=== PATIENT | male | born 1965 | race Caucasian/White ===

== ENCOUNTER 2019-12-01 17:54 | Emergency (ER) | payer MEDICAID, SELFPAY ==
[2019-12-01 17:54] VITALS: BP 140/91; PULSE 52; RESP 18; TEMP 36.9; O2SAT 100; BMI 22.9
--- NOTE | 2019-12-01 18:12 | CT_ITS ---
PROCEDURE: CT ANGIO CHEST CLINCIAL INDICATION: PE protocol CHEST PAIN ON DEEP INSPIRATION. R/O PE. HISTORY OF ASBESTOS EXPOSURE. COMPARISON: No exams were available for comparison TECHNIQUE: IV Contrast: 70ML OPTIRAY 350 Axial images obtained with sagittal and coronal reformats. All CT scans at the facility use one or more dose reduction, viz: automated exposure control, ma/kV adjustment per patient size (including targeted exams where dose is matched to indication, i.e. head), or iterative reconstruction technique. FINDINGS: No evidence of aortic aneurysm or dissection. No evidence of pulmonary embolus. No mediastinal or hilar mass or adenopathy. Coronary artery calcifications are present. COPD changes. Atelectatic changes are present in the lung bases. There is a 2 mm noncalcified nodule in the superior segment of the right lower lobe nonspecific.. No lobar consolidation. Central airways are clear. There are multiple old left-sided rib fractures with some bridging of callus formation noted posteriorly. Upper abdominal images are unremarkable. There is minimal nodularity of the left adrenal gland with low-density focus centrally which may be due to an adenoma. IMPRESSION: 1. No evidence of pulmonary embolus or aortic aneurysm or dissection. 2. Bilateral lower lobe atelectatic changes 3. Other nonacute findings as described above Dictated by: Mitch Isabel MD 12/02/2019 12:47 Mitch Isabel MD in [facility] 12/02/2019 12:47
--- NOTE | 2019-12-01 18:12 | [facility].EDGENADL ---
ED Disposition Clinical Impression: Tobacco use disorder Dyspnea Qualifiers: Dyspnea type: dyspnea on exertion Qualified Code(s): R06.00 - Dyspnea, unspecified Disposition: Still a Patient Condition on Discharge: Fair Referrals: Provider,Referral, [Referring] - - Critical Care Critical Care Time: No Attestation: On 12/01/19, the high probability of a clinically significant, sudden or life threatening deterioration of the following system(s) required my full and direct attention, intervention and personal management. The time I documented below is in addition to time spent performing reported procedures but includes the following listed in this critical care notation. Medical Decision Making - Medical Records Medical records reviewed: Yes: I reviewed the patient's medical records. - Georges Inquiry Pt receiving controlled substance: No Vital Signs: 12/01/19 17:54 Temperature 98.4 F Temperature Source Oral Pulse Rate [Right Radial] 52 L Respiratory Rate 18 Blood Pressure [Right Arm] 140/91 H Blood Pressure Mean [Right Arm] 107 Blood Pressure Source [Right Arm] Automatic Cuff Blood Pressure Position [Right Arm] Sitting 02 Sat by Pulse Oximetry 100 Oxygen Delivery Method Room Air - Lab Data Lab Results 12/01/19 18:26: WBC 11.1 H, RBC 5.33, Hgb 16.6, Hct 49.9, MCV 93.6, MCH 31.2, MCHC 33.3, RDW 13.1, Plt Count 232, MPV 7.3 L, Neut % (Auto) 39.4, Lymph % (Auto) 49.2, Colbert % (Auto) 5.3, Eos % (Auto) 4.9, Baso % (Auto) 1.2, Neut # (Auto) 4.4, Lymph # (Auto) 5.5 H, Colbert # (Auto) 0.6, Eos # (Auto) 0.6 H, Baso # (Auto) 0.1 12/01/19 18:26: Sodium 142, Potassium 4.0, Chloride 102, Carbon Dioxide 31 H, Anion Gap 13.0, BUN 14, Creatinine 0.90, Estimated Creat Clear 99, Estimated GFR 89, Est GFR ( Amer) 107, Glucose 107 H, Calcium 10.0, Troponin I < 0.01 12/01/19 18:26: D-Dimer 0.30 Result diagrams: 12/01/19 18:26 12/01/19 18:26 Orders (Tests/Meds): ED MEDICATIONS Discontinued Medications Generic Name Dose Route Start Last Admin Trade Name Radha PRN Reason Stop Dose Admin Ioversol 75 ml 12/01/19 20:17 12/01/19 20:19 Rad-Optiray 350 100ml Vial IV 12/01/19 20:18 75 ml ONCE ONE Administration Protocol Sodium Chloride 50 ml 12/01/19 20:17 12/01/19 20:19 Rad-Ns 50ml Vial IV 12/01/19 20:18 50 ml ONCE ONE Administration Sodium Chloride 10 ml 12/01/19 20:17 12/01/19 20:19 Rad-Saline Flush 10ml Syringe IV 12/01/19 20:18 10 ml ONCE ONE Administration ORDERS Category Date Time Status CT angio chest Stat Cat Scan 12/01/19 18:12 Taken Troponin I Q3H Lab 12/01/19 21:15 Ordered Troponin I Q3H Lab 12/02/19 00:15 Ordered EKG Request [ECG Request by Dr/Nse] Stat Y 12/01/19 18:13 Ordered - OLLIE Score for Non-Stemi Age of Patient: 50-59 years old Heart Rate: 50-69 bpm Systolic Blood Pressure: 140-159 mmHg Serum Creatinine: 0.40-0.79 mg/dl CHF Killip Class: I-No CHF Other Risk Factors: None Non-Stemi Risk Score: 72 Medical Decision Narrative: In summary this is a 54-year-old male with history of COPD, PE, asbestos exposure presenting to the emergency department with pain with inspiration. Patient clinically stable on arrival. Vital signs within normal limits. Differential diagnoses include new pulmonary embolus, lung mass, vaporizer associated lung injury. Plan to obtain CBC, CMP, chest x-ray, EKG, d-dimer, CT angiography of the chest. Laboratory results are generally unremarkable. Troponin not elevated. D-dimer within normal limits. I have concern for vaporizer associated lung injury or other lung pathology. We will continue with CT angiography of the chest. Care of this patient handed off to Dr. Huber, pending CT angiography of the chest. He will follow-up on imaging and disposition appropriately. Patient clinically stable in the emergency department, currently anticoagulated on Eliquis, likely stable for discharge home. Counseled on toba
--- NOTE | 2019-12-01 18:13 | ECG_ITS ---
APPROVED REPORT Exam: Resting ECG HR:40 bpm ECG Measurements Heart Rate 40 AXES NH 194 P 55 QRSd 118 QRS -23 QT 458 T 38 QTc 373 <Conclusion> Marked sinus bradycardia with sinus arrhythmia Nonspecific intraventricular conduction delay Abnormal ECG Electronically signed by : Ernie Luo, 12/02/2019 09:40:39
[2019-12-01 18:41] LABS: Basophils # 0.1 K/mm3 (0-0.2); Basophils % 1.2 % (0.1-2.0); Eosinophils # 0.6 K/mm3 (0.0-0.4); Eosinophils % 4.9 % (0.1-12.0); Hematocrit 49.9 % (42.0-52.0); Hemoglobin 16.6 g/dL (14.1-18.0); Lymphocytes # 5.5 K/mm3 (0.7-4.5); Lymphocytes % 49.2 % (10-50); Mean Corpuscular HGB Conc 33.3 g/dL (31.8-35.4); Mean Corpuscular Hemoglobin 31.2 pg (27.0-31.2); Mean Corpuscular Volume 93.6 fl (80-94); Mean Platelet Volume 7.3 fl (7.4-10.4); Monocytes # 0.6 K/mm3 (0.1-1.0); Monocytes % 5.3 % (1.7-9.3); Neutrophils # 4.4 K/mm3 (1.8-7.8); Neutrophils % 39.4 % (37.0-80.0); Platelet Count 232 K/mm3 (142-424); Red Blood Count 5.33 M/mm3 (4.60-6.20); Red Cell Distribution Width 13.1 % (11.5-17.5); White Blood Count 11.1 K/mm3 (4.8-10.8)
[2019-12-01 18:46] LABS: Chloride 102 mmol/L (98-107); Sodium 142 mmol/L (136-145)
[2019-12-01 18:49] LABS: Blood Urea Nitrogen 14 mg/dl (9-20); Creatinine Clearance Estimated 99 mL/min (50-200); Estimated Glomerular Filt Rate 89 ml/min (>60); GFR (African American) 107 ML/MIN (>60)
[2019-12-01 18:50] LABS: Carbon Dioxide 31 mmol/L (22.0-30.0); Glucose 107 mg/dl (74-100)
[2019-12-01 19:07] LABS: Troponin I < 0.01 ng/ml (0.00-0.034)
--- NOTE | 2019-12-01 20:15 | PC.NURSE ---
pt back from ct
[2019-12-01 20:30] VITALS: BP 142/92; PULSE 60; RESP 17; O2SAT 98
[2019-12-01 20:51] VITALS: BP 142/92; PULSE 78; RESP 16; TEMP 36.6; O2SAT 98
== END 2019-12-01 20:55 | disposition still patient (30) ==
PROVIDERS: Emergency Provider Emergency Medicine; PCP Nurse Practitioner Family
DX: J44.1 Chronic obstructive pulmonary disease with (acute) exacerbation (principal); R07.9 Chest pain, unspecified; Z79.01 Long term (current) use of anticoagulants; U07.0 Vaping-related disorder; Z79.899 Other long term (current) drug therapy; Z77.090 Contact with and (suspected) exposure to asbestos
CPT/HCPCS: 71275; 80048; 84484; 85025; 85378; 99283; Q9967

== ENCOUNTER 2023-05-27 10:00 | Emergency (ER) | payer MEDICAID, SELFPAY ==
[2023-05-27 10:08] VITALS: BP 150/107; PULSE 78; RESP 16; TEMP 36.6; O2SAT 96; BMI 24.3
--- NOTE | 2023-05-27 10:11 | XR_ITS ---
PROCEDURE INFORMATION: Exam: XR Abdomen Exam date and time: 05/27/2023 10:11 AM Age: 58 years old Clinical indication: Constipation; Additional info: No bm x few days, backed up because of suboxone TECHNIQUE: Imaging protocol: Radiologic exam of the abdomen. Views: Frontal supine view of the abdomen. 1 View. COMPARISON: CT ANGIO CHEST 12/01/2019 8:05 PM FINDINGS: Gastrointestinal tract: Normal. No bowel dilation. Bones/joints: Unremarkable. IMPRESSION: No acute findings.
--- NOTE | 2023-05-27 10:14 | ED_ITS ---
Discharge Plan Disposition Patient Disposition: Home, Self-Care Condition: Good Prescriptions Prescriptions: New polyethylene glycol 3350 [ClearLax] 17 gram/dose powder 17 g PO DAILY Qty: 510 0RF senna 8.6 mg capsule 8.6 mg PO DAILY Qty: 30 0RF No Action amlodipine 10 MG tablet 10 mg PO DAILY metoprolol tartrate 25 MG tablet 25 mg PO TID apixaban 5 mg tablet 5 mg PO BID Referrals Follow up/Referrals: Provider,Referral, MD [Primary Care Provider] - See instructions Activity Restrictions/Add. Instructions Additional Instructions/Restrictions: You were evaluated in the emergency department today. It is important that you follow-up with your pain clinic for further refills and redosages of your Suboxone. Please contact them Sunday as soon as possible to schedule an appointment. Follow-up with your primary care provider over the next week. engineering supervisor your prescription for MiraLAX and take as prescribed. Return to the emergency department for new or worsening symptoms Clinical Impressions Clinical Impression: Constipation, Opioid dependence Instructions Patient Instructions: DI for Acute Abdominal Pain Discharge ED Provider: Ana Randall General Adult HPI General Chief complaint: Abdominal Pain Stated complaint: stomach pain Time Seen by Provider: 05/27/23 10:10 Mode of Arrival: Ambulatory Source of Information: Patient Limitations: No Limitations Description of Symptoms (Recalled from ER Triage Doc. by RN): pt presents to ED with c/o abdominal pain. pt reports he may be constipated, but did have a small bm this morning. pt reports he is also out of his suboxone, states that he missed his appoitment, and last dose was yesterday. History of Present Illness HPI narrative: This patient is a 58-year-old male with a history of chronic pain on Suboxone, tobacco use disorder, and chronic constipation presenting with concern for abdominal pain. He states that he is having mild generalized pain from constipation. He states that he has been having trouble having a bowel movement despite taking pill laxatives at home. He notes he still passing gas. He has had no significant localized pain, and no nausea, vomiting, fevers, or other concerns. He also states that he missed his last Suboxone appointment. He can remember when it was or when he was supposed to go, and he is unsure when his next follow-up may be. Given this, he is requesting refill of his Suboxone here. Related Data Home Medications Medication Instructions Recorded Confirmed amlodipine 10 mg tablet 10 mg PO DAILY htn 12/01/19 12/01/19 apixaban 5 mg tablet 5 mg PO BID hx blood clots 12/01/19 12/01/19 metoprolol tartrate 25 mg tablet 25 mg PO TID htn 12/01/19 12/01/19 Previous Rx's Medication Instructions Recorded polyethylene glycol 3350 17 17 g PO DAILY #510 grams 05/27/23 gram/dose oral powder (ClearLax) sennosides 8.6 mg capsule (senna) 8.6 mg PO DAILY #30 caps 05/27/23 Allergies Allergy/AdvReac Type Severity Reaction Status Date / Time From Penicillin G Sodium Allergy Unknown Uncoded 02/27/17 15:00 Methocarbamol Allergy Unknown Uncoded 02/27/17 15:00 PCN (penicillin) Allergy Unknown Uncoded 02/27/17 15:00 Penicillin Allergy Unknown Uncoded 02/27/17 15:00 Tramadol Allergy Unknown Uncoded 02/27/17 15:00 [facility] Disclaimer: The information contained in this section may have been updated after the patient was seen, as this information can be updated by other users. Social History Smoking Status: Current every day smoker alcohol intake: former substance use type: unknown current occupational status: other Travel in the last 8 weeks: None ROS Obtained: Yes All systems reviewed & no additional complaints except as documented Physical Exam General General appearance: alert and in no apparent distress Head Head exam: atraumatic and normocephalic Eye Eye exam: Present normal appearance, PERRL and EOMI ENT ENT exam: Present normal exam, normal oropharynx, mucous membranes moist and normal external ear exam Neck Neck exam: Present normal inspection, full ROM and trachea midline; Absent tenderness Chest Chest inspection: Present normal inspection and symmetric chest wall rise; Absent tenderness Respiratory Respiratory exam: Present normal lung sounds bilaterally; Absent respiratory distress, wheezes, stridor or accessory muscle use Cardiovascular Cardiovascular exam: Present regular rate and normal rhythm Abdominal Exam Abdominal exam: Present soft; Absent distention, tenderness or guarding Extremities Exam Extremities exam: Present normal inspection, full ROM and normal capillary refill; Absent tenderness or edema Back Exam Back exam: Present normal inspection and full ROM; Absent tenderness Neurological Exam Neurological exam: Present alert, oriented X3, CN II-XII intact and normal gait; Absent motor sensory deficit Psychiatric Psychiatric exam: Present normal affect and normal mood Skin Skin exam: Present warm and dry Medical Decision Making Medical Records Medical records reviewed: Yes I reviewed the patient's medical records. Georges Inquiry Pt receiving controlled substance: No Vital Signs: 05/27/23 10:08 05/27/23 10:30 05/27/23 10:40 Temperature 97.8 F 98 F Temperature Source Oral Oral Pulse Rate 77 77 Pulse Rate [Left Radial] 78 Respiratory Rate 16 18 Blood Pressure 158/99 H 158/99 H Blood Pressure [Right Arm] 150/107 H Blood Pressure Mean [Right Arm] 121 02 Sat by Pulse Oximetry 96 97 Oxygen Delivery Method Room Air Lab Data Lab results reviewed: Yes I reviewed the patient's lab results. Orders (Tests/Meds): ORDERS Category Date Time Status XR KUB Stat Exams 05/27/23 10:11 Completed Medical Decision Narrative: In summary, this patient is a 58-year-old male presenting to the Emergency Department for evaluation of constipation and needs refill for his Suboxone. Differential diagnoses considered include but are not limited to constipation, bowel obstruction, colitis, diverticulitis. Ruling out the most morbid conditions drove assessment. On exam, the patient is well-appearing with reassuring vital signs on cardiac telemetry. Abdominal exam is benign with no focal tenderness, guarding, or other concerns. He is still eating and drinking fine with no nausea and vomiting, and he is passing gas. Workup included KUB to evaluate for significa nt impaction or obstructive gas pattern. Patient is requesting refill of his Suboxone prescription, however he has a contract with the pain clinic and he has been missing his appointments with them. I advised him that for further refills, it is imperative that he follow-up with them, as we are not to prescribe opioids from the emergency department and patient to our on them for chronic maintenance. I independently interpreted x-ray prior to the radiologist read and noted no obstructive pattern, but patient does have moderate stool burden. Please see their read for final interpretation. Given patient's reassuring workup and exam, I feel that he is appropriate for discharge with bowel cleanout. He was given prescriptions for MiraLAX and senna. I advised that he follow-up very closely with his pain management clinic for further evaluation and management. Strict return precautions were given, and the patient was discharged in stable condition. Critical Care Critical Care Time Critical Care Time: No
[2023-05-27 10:30] VITALS: BP 158/99; PULSE 77; O2SAT 97
[2023-05-27 10:40] VITALS: BP 158/99; PULSE 77; RESP 18; TEMP 36.6; O2SAT 97
== END 2023-05-27 10:42 | disposition home or self-care (01) ==
PROVIDERS: Emergency Provider Emergency Medicine
DX: R10.84 Generalized abdominal pain (principal); K59.00 Constipation, unspecified; F11.20 Opioid dependence, uncomplicated; F17.200 Nicotine dependence, unspecified, uncomplicated; G89.29 Other chronic pain
CPT/HCPCS: 74018; 99283